=== PATIENT | female | born 1985 | race Two or more races ===

== ENCOUNTER 2019-10-31 09:55 | Observation (INO) | payer MEDICAID ==
[2019-10-31] MEDS ORDERED: PREN-96 PO (11:29)
== END 2019-10-31 11:20 | disposition home or self-care (01) | DRG 563 ==
LOC: LDRP 09:55
PROVIDERS: ADMIT Specialist; ATTEND Specialist
DX: O60.03 Preterm labor without delivery, third trimester (principal); Z3A.31 31 weeks gestation of pregnancy
CPT/HCPCS: 59025; 81002; G0378

== ENCOUNTER 2019-11-06 08:15 | Observation (INO) | payer MEDICAID ==
[~2019-11-06 08:15] MED LIST: PREN-96 PO
== END 2019-11-06 09:12 | disposition home or self-care (01) | DRG 563 ==
LOC: LDRP 08:15
PROVIDERS: ADMIT Specialist; ATTEND Specialist
DX: O60.03 Preterm labor without delivery, third trimester (principal); O09.213 Supervision of pregnancy with history of pre-term labor, third trimester; O34.219 Maternal care for unspecified type scar from previous cesarean delivery; Z3A.32 32 weeks gestation of pregnancy
CPT/HCPCS: 59025; 81002; G0378

== ENCOUNTER 2019-11-13 09:00 | Observation (INO) | payer MEDICAID | END 2019-11-13 09:50 | disposition home or self-care (01) | DRG 563 | LOC: LDRP 09:00 | PROVIDERS: ADMIT Specialist; ATTEND Specialist | DX: O60.03 Preterm labor without delivery, third trimester (principal); Z3A.33 33 weeks gestation of pregnancy; Z98.891 History of uterine scar from previous surgery | CPT/HCPCS: 59025; 81002; G0378 ==

== ENCOUNTER 2019-11-20 08:46 | Observation (INO) | payer MEDICAID | END 2019-11-20 09:55 | disposition home or self-care (01) | DRG 563 | LOC: LDRP 08:46 | PROVIDERS: ADMIT Specialist; ATTEND Specialist | DX: O60.03 Preterm labor without delivery, third trimester (principal); Z3A.34 34 weeks gestation of pregnancy | CPT/HCPCS: 59025; 81002; G0378 ==

== ENCOUNTER 2019-11-27 08:43 | Observation (INO) | payer MEDICAID | END 2019-11-27 09:45 | disposition home or self-care (01) | DRG 563 | LOC: LDRP 08:43 | PROVIDERS: ADMIT Specialist; ATTEND Specialist | DX: O60.03 Preterm labor without delivery, third trimester (principal); O62.9 Abnormality of forces of labor, unspecified; Z3A.35 35 weeks gestation of pregnancy | CPT/HCPCS: 59025; 81002; G0378 ==

== ENCOUNTER 2019-12-21 01:18 | Inpatient (IN) | payer MEDICAID ==
[2019-12-21] VITALS (8 sets, daily range): BP systolic 99–120; BP diastolic 53–74
[~2019-12-21] VITALS: Ht 152.4 cm; Wt 68.5 kg
[2019-12-21] MEDS ORDERED: TERBUTALINE SULFATE 1 MG/ML 1ML VIAL SC ONE (01:57)
[2019-12-21] MEDS: TERBUTALINE SULFATE 1 MG/ML 1ML VIAL SC SCH ×3 (02:00→03:52)
[2019-12-21] MEDS ORDERED: LACTATED RINGER'S 1,000 ML IV ONE (02:10)
[2019-12-21] MEDS ORDERED: LACTATED RINGER'S 1,000 ML IV SCH ×3 (02:10→11:00)
[2019-12-21] MEDS ORDERED: NIFEdipine 10 MG CAP PO ONE ×2 (02:30→07:00)
[2019-12-21 02:35] LABS: Basophils # (auto) 0 10 ^3/uL (0-0.2); Basophils % (auto) 0.2 % (0.0-2.0); Eosinophils # (auto) 0 10 ^3/uL (0-0.8); Eosinophils % (auto) 0.4 % (0.0-7.0); Hematocrit 34.8 % (36.0-46.0); Hemoglobin 11.9 g/dL (12.2-16.2); Lymphocytes # (auto) 2.7 10 ^3/uL (0.4-5.4); Lymphocytes % (auto) 24.3 % (10.0-50.0); Mean Corpuscular Hemoglobin 32.3 pg (28.0-32.0); Mean Corpuscular Hgb Conc. 34.2 g/dL (32.0-36.0); Mean Corpuscular Volume 94.4 fL (80.0-100.0); Monocytes # (auto) 0.5 10 ^3/uL (0-1.3); Monocytes % (auto) 4.4 % (0.0-12.0); Neutrophils % (auto) 70.7 % (37.0-80.0); Nucleated Red Blood Cells % 0.1 %; Platelet Count (auto) 246 10^3/uL (140-450); Red Blood Cells 3.69 10^6/uL (4.0-5.20); Red Cell Distribution Width 13.9 % (11.8-14.3); White Blood Cell 11.3 10^3/uL (4.4-10.8)
[2019-12-21 02:50] LABS: INR 0.99 (0.9-1.15); Partial Thromboplastin Time 27.1 sec (23.0-31.2)
[2019-12-21 02:52] LABS: BUN/Creatinine Ratio 8.6; Calcium 8.4 mg/dL (8.5-10.1); Potassium 3.2 mmol/L (3.5-5.1)
[2019-12-21 02:55] LABS: Bilirubin, Total 0.2 mg/dL (0.2-1.0); Total Protein 7.2 g/dL (6.4-8.2)
[2019-12-21 03:13] LABS: Urine Bacteria FEW /hpf (None Seen); Urine Blood 1+ /uL (Negative); Urine Specific Gravity 1.003 (1.001-1.035); Urine WBC <1 /hpf (0 - 5)
[2019-12-21 03:29] LABS: Alcohol, Urine < 3.0 mg/dL (0-10); Amphetamine Screen, Urine NEGATIVE (NEGATIVE); Barbiturate Scree,Urine NEGATIVE (NEGATIVE); Benzodiazephine Screen, Urine NEGATIVE (NEGATIVE); Cannabinoid Screen, Urine NEGATIVE (NEGATIVE); Cocaine Screen, Urine NEGATIVE (NEGATIVE); Opiate Scree,Urine NEGATIVE (NEGATIVE); Phencyclidine Screen, Urine NEGATIVE (NEGATIVE)
[2019-12-21] MEDS ORDERED: POTASSIUM CHL 20 Meq TABLET PO ONE (04:15)
[2019-12-21] MEDS ORDERED: TETRACAINE 1% INJ 2 ML VIAL IJ ONE (08:58)
[2019-12-21] MEDS ORDERED: ePHEDrine SULFATE 50 MG/ML AMP ONE (09:02)
[2019-12-21] MEDS ORDERED: MORPHINE SULF(PF) 0.5MG/ML 10ML VIAL ONE (09:02)
[2019-12-21] MEDS ORDERED: PHENYLEPHRINE HCL 10 MG/ML VL ONE (09:02)
[2019-12-21] MEDS ORDERED: ceFAZolin 1GM VL ONE (09:02)
[2019-12-21] MEDS ORDERED: oxyTOCIN 10 UNIT/ML 10ML VIAL ONE (09:04)
[2019-12-21] MEDS ORDERED: MIDAZOLAM HCL 1MG/1ML-2 ML VIAL ONE ×2 (09:25→09:38)
[2019-12-21] MEDS ORDERED: fentaNYL CITRATE 100 MCG/2 ML VL ONE (09:41)
[2019-12-21] MEDS ORDERED: KETOROLAC TROMETH 30 MG/ML 1ML VIAL IV PRN ×2 (10:00→10:30)
[2019-12-21] MEDS ORDERED: diphenhdrAMINE HCL 50 MG/1 ML VL IV PRN (10:00)
[2019-12-21] MEDS ORDERED: HYDROmorphone HCL 2 MG/ML VL IV PRN ×2 (10:00→10:30)
[2019-12-21] MEDS ORDERED: ONDANSETRON HCL 4 MG/2 ML VIAL IV PRN ×4 (10:00→11:00)
[2019-12-21] MEDS ORDERED: NALOXONE HCL 0.4 MG/ML VIAL IV PRN ×2 (10:00)
[2019-12-21] MEDS ORDERED: METOCLOPRAMIDE HCL 5MG/ml INJ 2ml VIAL IV PRN (10:00)
[2019-12-21] MEDS ORDERED: ceFAZolin 1GM/50ML 50 ML IV SCH ×2 (10:30→11:00)
[2019-12-21] MEDS ORDERED: ACETAMINOPHEN IV 1000 MG/100ML (10MG/ML) IV PRN ×2 (10:30→11:00)
[2019-12-21] MEDS ORDERED: GUM (CHEWING) 1 GUM CHEW CHEW ONE (10:30)
--- NOTE | 2019-12-21 11:28 | NUR ---
PT taken to room 7a Report received from andre [employer] Fundus firm 1 below u small bleeding, dressing dry and intact, vs stable Will continue to monitor.
--- NOTE | 2019-12-21 11:36 | NUR ---
Teaching: Reviewed information in [facility] booklet with patient. Discussed benefits of and risks associated with not . Discussed different positions, proper latch, feeding cues, and baby-led . Provided information of medication side effects related to . All questions and concerns addressed at this time. Patient verbalized understanding of information.
[2019-12-21] MEDS: KETOROLAC TROMETH 30 MG/ML 1ML VIAL IV PRN ×3 (11:49→23:52)
--- NOTE | 2019-12-21 12:00 | NUR ---
Pericare provided to pt Pad changed, pt cleaned, new pad applied. fundus firm 2 below, will continue to monitor.
--- NOTE | 2019-12-21 14:00 | NUR ---
Pericare provided to pt Pad changed, pt cleaned, new pad applied. fundus firm 2 below, will continue to monitor.
[2019-12-21] MEDS: ceFAZolin 1GM/50ML 50 ML IV SCH (18:59)
--- NOTE | 2019-12-21 21:45 | NUR ---
Ambulation: Annemarie-care performed, annemarie-pad changed, and gown changed. Nonskid socks placed. Patient OOB with standby assistance by RN. Patient ambulated while pushing open crib down hallway and back to room with steady gait. No C/O pain or signs of distress noted. Bed linen changed. Patient returned to bed. SCDs placed. Correia bag hung below bladder. Safety precautions in place; bed in low position, side rails up x2, wheels locked, call light within reach.
[2019-12-22] MEDS: ceFAZolin 1GM/50ML 50 ML IV SCH ×2 (02:05→10:03)
[2019-12-22 03:30] VITALS: BP 118/66
--- NOTE | 2019-12-22 05:35 | NUR ---
Correia DC'd Correia catheter removed. Patient tolerated well. 900 ML out
[2019-12-22 06:42] LABS: Basophils # (auto) 0 10 ^3/uL (0-0.2); Basophils % (auto) 0.2 % (0.0-2.0); Eosinophils # (auto) 0 10 ^3/uL (0-0.8); Eosinophils % (auto) 0.2 % (0.0-7.0); Hematocrit 32.9 % (36.0-46.0); Hemoglobin 11.3 g/dL (12.2-16.2); Lymphocytes # (auto) 1.2 10 ^3/uL (0.4-5.4); Lymphocytes % (auto) 11.8 % (10.0-50.0); Mean Corpuscular Hgb Conc. 34.5 g/dL (32.0-36.0); Mean Corpuscular Volume 95.7 fL (80.0-100.0); Monocytes # (auto) 0.4 10 ^3/uL (0-1.3); Neutrophils # (auto) 8.5 10 ^3/uL (1.6-8.6); Neutrophils % (auto) 83.8 % (37.0-80.0); Nucleated Red Blood Cells % 0.1 %; Platelet Count (auto) 236 10^3/uL (140-450); Red Blood Cells 3.43 10^6/uL (4.0-5.20); Red Cell Distribution Width 13.6 % (11.8-14.3); White Blood Cell 10.1 10^3/uL (4.4-10.8)
[2019-12-22 07:09] VITALS: BP 100/63
[2019-12-22 07:09] LABS: RPR Non Reactive (Non Reactive)
[2019-12-22] MEDS ORDERED: HYDROcodone-ACET 5/325MG TAB PO PRN (08:15)
[2019-12-22] MEDS ORDERED: SIMETHICONE 80 MG CHEWABLE TABLET PO PRN (08:15)
[2019-12-22] MEDS: HYDROcodone-ACET 5/325MG TAB PO PRN ×2 (10:03→21:31)
[2019-12-22] MEDS: DOCUSATE SOD 100 MG CAP PO SCH ×2 (10:03→21:31)
[2019-12-22 10:41] VITALS: BP 127/81
[2019-12-22] MEDS: IBUPROFEN 800 MG TAB PO PRN (13:23)
[2019-12-22 14:58] VITALS: BP 109/69
[2019-12-22 19:10] VITALS: BP 105/67
[2019-12-22 23:18] VITALS: BP 107/65
[2019-12-23 03:15] VITALS: BP 101/67
[2019-12-23] MEDS: IBUPROFEN 800 MG TAB PO PRN ×2 (05:16→18:01)
[2019-12-23 07:15] VITALS: BP 99/58
[2019-12-23] MEDS: DOCUSATE SOD 100 MG CAP PO SCH ×2 (11:03→21:42)
[2019-12-23 11:13] VITALS: BP 110/68
[2019-12-23 14:50] VITALS: BP 103/70
[2019-12-23 19:00] VITALS: BP 96/65
[2019-12-23] MEDS: HYDROcodone-ACET 5/325MG TAB PO PRN (21:42)
[2019-12-23 22:42] VITALS: BP 98/59
--- NOTE | 2019-12-23 23:39 | NUR ---
UPON ASSESSMENT. RASH NOTED BELOW INCISION SITE. PT STATES IT DOES NOT ITCH OR CAUSE PAIN. PAD PLACED OVER INCISION. FINDINGS EXPRESSED TO CNM. NO FURTHER ORDERS RECEIVED.
[2019-12-24] MEDS ORDERED: TETANUS-DIPTH-ACEL PERTUSSIS 0.5ML SYR Tdap IM ONE (02:15)
[2019-12-24 03:00] VITALS: BP 105/67
[2019-12-24] MEDS: IBUPROFEN 800 MG TAB PO PRN (07:21)
[2019-12-24 07:24] VITALS: BP 124/57
--- NOTE | 2019-12-24 08:09 | NUR ---
Discharge: Discharge instructions given as ordered. Pt encouraged to follow up with [employer]ER as instructed. All questions and concerns addressed. Patient verbalized understanding. Medication reconciliation completed and copy given to patient. All required/requested vaccines given and copies of vaccinations given to patient. Patient encouraged to prepare to depart unit.
--- NOTE | 2019-12-24 09:45 | NUR ---
Discharge: Patient taken to vehicle via ambulating with all personal belongings, accompanied by staff and family member. No distress noted at time of departure, no adverse changes in status since initial assessment. Education translated by Maria M.
== END 2019-12-24 09:45 | disposition home or self-care (01) | DRG 540 ==
LOC: LDRP 01:18 → OBSVTOIN 08:10 → LDRP 21:51
PROVIDERS: ADMIT Specialist; ATTEND Specialist
PROC: 0UL70CZ Occlusion of Bilateral Fallopian Tubes with Extraluminal Device, Open Approach (ICD-10-PCS; 2019-12-21)
PROC: 10D00Z1 Extraction of Products of Conception, Low, Open Approach (ICD-10-PCS; principal; 2019-12-21 08:55)
DX: O34.211 Maternal care for low transverse scar from previous cesarean delivery (principal); Z30.2 Encounter for sterilization; Z37.0 Single live birth; Z3A.39 39 weeks gestation of pregnancy; Z23 Encounter for immunization
CPT/HCPCS: 36415; 59025; 80053; 80307; 81001; 81002; 84112; 85025; 85610; 85730; 86592; 86850; 86900; 86901; 94762; 96360; 96361; 96372; 96374; G0378; J0690; J1885; J2250; J2590

== ENCOUNTER → 2019-12-24 | Outpatient (CLI) | payer MEDICAID ==
--- NOTE | 2019-12-18 09:00 | NUR ---
Patient presents to [facility] for Preop Covid test due to scheduled Repeat section. Consents signs and discussed in brazilian. Patient verbalizes understanding.
--- NOTE | 2019-12-18 09:30 | NUR ---
COVID-19 test Covid test performed . Patient tolerated well.
--- NOTE | 2019-12-18 09:40 | NUR ---
Patient leaves unit ambulatory with no signs of distress. COVID info in hand .
== END | disposition home or self-care (01) ==
LOC: LDRP 12-18 08:51 → UNDOADMOB 12-18 08:51 → UNDODISOB 12-18 09:40 → XYW 08:18 → EDSTATUS 12:13
PROVIDERS: ATTEND Specialist
DX: Z20.828 Contact with and (suspected) exposure to other viral communicable diseases (principal)
CPT/HCPCS: G0378